=== PATIENT | male | born 1965 | race Caucasian/White ===

== ENCOUNTER → 2025-06-28 | Outpatient (CLI) | payer MEDICAID, SELFPAY ==
--- NOTE | 2025-06-28 11:00 | XR_ITS ---
Examination: Ultrasound-guided paracentesis Abdominal sonogram limited Date and time of exam: June 28, 2025, 1234 hours INDICATIONS: Cirrhosis, increasing abdominal distention and ascites today Informed consent provided. A timeout was completed verifying correct patient, procedure, site, positioning, and special adequate movement if applicable. Technique: Multiple sonographic images of the abdomen have been obtained. Appropriate area for paracentesis was marked. Local anesthesia is obtained with 1% lidocaine. Yueh catheter is successfully introduced. Findings: Abdominal sonographic images demonstrate sufficient ascitic fluid for paracentesis. After placing the Yueh catheter, 8700 cc of fluid were successfully removed. During and after completion of the procedure the patient appear in satisfactory and stable condition with no complications observed. Estimated blood loss 0 cc Impression: Abdominal ascites Successful ultrasound-guided paracentesis as described above
[2025-06-28 13:33] LABS: Basophils # (Auto) 0.0 Thou/mm3 (0.0-0.2); Basophils % (Auto) 1 % (0-2.5); Eosinophils # (Auto) 0.0 Thou/mm3 (0.0-0.5); Eosinophils % (Auto) 1 % (0-10); Hematocrit 27.3 % (41.0-53.0); Hemoglobin 9.4 g/dL (13.5-16.0); Immature Granulocytes Auto 0.02 Thou/mm3 (0.00-0.00); Lymphocytes # (Auto) 0.6 Thou/mm3 (1.0-4.8); Lymphocytes % (Auto) 12 % (10-50); Mean Corpuscular HGB Conc 34.4 g/dl (31.0-37.0); Mean Corpuscular Hemoglobin 30.9 pg (25.0-35.0); Mean Corpuscular Volume 90 fL (80-100); Monocytes # (Auto) 0.6 Thou/mm3 (0.0-0.8); Monocytes % (Auto) 12 % (0-12); Neutrophils # (Auto) 3.8 Thou/mm3 (1.8-7.7); Neutrophils % (Auto) 74 % (37-80); Nucleated Red Blood Cell # 0.00 Thou/mm3 (0.00-0.00); Nucleated Red Blood Cell % 0 /100 WBC (0); Platelet Count 113 Thou/mm3 (140-440); RDW Standard Deviation 46.4 fL (35.1-43.9); Red Blood Count 3.04 Miln/mm3 (4.50-5.90); White Blood Count 5.1 Thou/mm3 (3.8-10.6)
[2025-06-28 13:51] LABS: INR 1.1 (0.9-1.3); Partial Thromboplastin Time 25.4 Seconds (22.0-36.0); Prothrombin Time 11.6 Seconds (9.0-12.2)
== END | disposition home or self-care (01) ==
PROVIDERS: PCP Nurse Practitioner Family; Referring Provider Nurse Practitioner Family; Visit Provider Nurse Practitioner Family
DX: R18.8 Other ascites (principal); K74.60 Unspecified cirrhosis of liver
CPT/HCPCS: 49083; 36415; 85025; 85610; 85730; C1729

== ENCOUNTER 2025-07-12 16:04 | Emergency (ER) | payer MEDICAID, SELFPAY ==
[2025-07-12 16:22] VITALS: BP 143/72; PULSE 75; RESP 16; TEMP 36.7; O2SAT 99; BMI 23.7
--- NOTE | 2025-07-12 16:48 | PD.EDRME ---
Rapid Medical Screening Exam RME Arrival date/time: 07/12/25 16:04 59-year-old male presents emergency department today requesting paracentesis Chief Complaint: Abdominal Pain Time Seen by Provider: 07/12/25 16:16 Vital signs: Vital Signs Temperature 98.0 F 07/12/25 16:22 Pulse Rate 75 07/12/25 16:22 Respiratory Rate 16 07/12/25 16:22 Blood Pressure 143/72 H 07/12/25 16:22 Pulse Oximetry (%) 99 07/12/25 16:22 Oxygen Delivery Method Room Air 07/12/25 16:22 Vital signs reviewed by provider: Yes Exam: On exam well-appearing does not appear look toxic patient does have abdominal distention consistent with cirrhosis and ascites Clinical Impression: Patient to have paracentesis
== END 2025-07-12 17:23 | disposition left against medical advice (07) ==
PROVIDERS: Emergency Provider Nurse Practitioner Primary Care
DX: R14.0 Abdominal distension (gaseous) (principal); Z53.29 Procedure and treatment not carried out because of patient's decision for other reasons
CPT/HCPCS: 99281

== ENCOUNTER 2025-07-13 09:54 | Emergency (ER) | payer MEDICAID, SELFPAY ==
[2025-07-13 10:08] VITALS: BP 160/82; PULSE 70; RESP 20; TEMP 36.6; O2SAT 100; BMI 23.6
--- NOTE | 2025-07-13 10:43 | XR_ITS ---
Examination: Ultrasound-guided paracentesis Abdominal sonogram limited Date and time of exam: July 13, 2025, 1320 hours INDICATION: Cirrhosis, increasing size abdominal distention this week Informed consent provided. A timeout was completed verifying correct patient, procedure, site, positioning, and special adequate movement if applicable. Technique: Multiple sonographic images of the abdomen have been obtained. Appropriate area for paracentesis was marked. Local anesthesia is obtained with 1% lidocaine. Yueh catheter is successfully introduced. Findings: Abdominal sonographic images demonstrate sufficient ascitic fluid for paracentesis. After placing the Yueh catheter, 6500 cc of fluid were successfully removed. During and after completion of the procedure the patient appear in satisfactory and stable condition with no complications observed. Estimated blood loss 0 cc Impression: Abdominal ascites Successful ultrasound-guided paracentesis as described above
[2025-07-13 10:53] LABS: Basophils # (Auto) 0.1 Thou/mm3 (0.0-0.2); Basophils % (Auto) 1 % (0-2.5); Eosinophils # (Auto) 0.1 Thou/mm3 (0.0-0.5); Eosinophils % (Auto) 1 % (0-10); Hematocrit 27.1 % (41.0-53.0); Hemoglobin 9.1 g/dL (13.5-16.0); Immature Granulocytes Auto 0.02 Thou/mm3 (0.00-0.00); Lymphocytes # (Auto) 0.5 Thou/mm3 (1.0-4.8); Lymphocytes % (Auto) 10 % (10-50); Mean Corpuscular HGB Conc 33.6 g/dl (31.0-37.0); Mean Corpuscular Hemoglobin 29.9 pg (25.0-35.0); Mean Corpuscular Volume 89 fL (80-100); Monocytes # (Auto) 0.5 Thou/mm3 (0.0-0.8); Monocytes % (Auto) 9 % (0-12); Neutrophils # (Auto) 4.2 Thou/mm3 (1.8-7.7); Neutrophils % (Auto) 78 % (37-80); Nucleated Red Blood Cell # 0.00 Thou/mm3 (0.00-0.00); Nucleated Red Blood Cell % 0 /100 WBC (0); Platelet Count 118 Thou/mm3 (140-440); RDW Standard Deviation 45.0 fL (35.1-43.9); Red Blood Count 3.04 Miln/mm3 (4.50-5.90); White Blood Count 5.4 Thou/mm3 (3.8-10.6)
[2025-07-13 11:09] LABS: INR 1.1 (0.9-1.3); Prothrombin Time 11.6 Seconds (9.0-12.2)
[2025-07-13 11:13] LABS: Alanine Aminotransferase 15 U/L (10-49); Albumin, Serum 3.8 gm/dL (3.4-4.8); Albumin/Globulin Ratio 1.3 (1.2-2.2); Alkaline Phosphatase 94 U/L (46-116); Anion Gap 8 (7-16); Aspartate Amino Transferase 26 U/L (0-34); BUN/Creatinine Ratio 16 Ratio (12-20); Bilirubin,Total 0.7 mg/dL (0.3-1.2); Blood Urea Nitrogen 38 mg/dL (9-23); Calcium 8.8 mg/dL (8.3-10.6); Calcium (Corrected) 9.0 mg/dL (8.5-10.1); Carbon Dioxide 23.1 mMol/L (20.0-31.0); Chloride 107 mMol/L (98-107); Creatinine (Component) 2.4 mg/dL (0.6-1.3); Estimated Creatinine Clearance 36.5 mL/min (>60); Globulin 2.9 gm/dL (2.3-3.5); Glucose 123 mg/dL (74-106); Osmolality,Calculated 285 (275-295); Potassium 4.4 mMol/L (3.4-5.1); Sodium 138 mMol/L (136-145); Total Protein 6.7 gm/dL (5.7-8.2); eGFR 30 See Note
--- NOTE | 2025-07-13 11:24 | EDRME_ITS ---
Rapid Medical Screening Exam [facility] Arrival date/time: 07/13/25 09:54 This is a 59-year-old male that comes into the emergency room with complaints of wanting to have a paracentesis. Patient states he is been here before and they drained approximately 9 L of fluid on June 28, 2025. Patient states that he feels like he is full again. Patient was told by his primary doctor to come here in the emergency room and have it drained. Patient has no other complaints. Chief Complaint: Abdominal Pain Time Seen by Provider: 07/13/25 10:05 Vital signs: Vital Signs Temperature 97.9 F 07/13/25 10:08 Pulse Rate 70 07/13/25 10:08 Respiratory Rate 20 07/13/25 10:08 Blood Pressure 160/82 H 07/13/25 10:08 Pulse Oximetry (%) 100 07/13/25 10:08 Oxygen Delivery Method Room Air 07/13/25 10:08 Exam: Abdominal distention, alert and oriented, breathing even and unlabored Clinical Impression: Ascites
--- NOTE | 2025-07-13 16:16 | PD.EDABDPN ---
ED Abdominal Pain RME/HPI General Chief Complaint: Abdominal Pain Stated complaint: NEEDS PARACENTESIS, DENIES SOB Time seen by provider: 07/13/25 10:05 Arrival date/time: 07/13/25 09:54 59-year-old male patient came in for evaluation regarding request for paracentesis. According to him he has been having worsening abdominal distention severity moderate. Patient is denying any abdominal pain denies any fever denies any shortness of breath. Patient had paracentesis done 2 weeks ago. RME / HPI RME / HPI narrative: 07/13/25 09:54 This is a 59-year-old male that comes into the emergency room with complaints of wanting to have a paracentesis. Patient states he is been here before and they drained approximately 9 L of fluid on June 28, 2025. Patient states that he feels like he is full again. Patient was told by his primary doctor to come here in the emergency room and have it drained. Patient has no other complaints. Exam: Abdominal distention, alert and oriented, breathing even and unlabored Impression: Ascites Related Data Allergies Allergy/AdvReac Type Severity Reaction Status Date / Time Penicillins Allergy Verified 07/13/25 09:57 Review of Systems Review of Systems Narrative Review of Systems: Review of system reviewed and within normal limits except mentioned in HPI ED Exam Narrative Physical exam: VITAL SIGNS: Reviewed. GENERAL APPEARANCE: Alert and interactive, follows commands, no acute distress, HEAD AND FACE: Non-traumatic. ENT: PERRL, pink conjunctivitis, eyelid no trauma, Mucous membrane moist. NECK: Supple, nontender, no nuchal rigidity. CHEST: No tenderness, no crepitus, no paradoxical movement, no retractions. LUNGS: Clear, well ventilated, symmetric, no rales, no wheezing, no ronchi, no stridor, good breath sounds bilaterally. HEART: Regular rate, regular rhythm, no murmur, no gallops. ABDOMEN: Soft, positive bowel sounds, abdominal distention, positive fluid wave test, no guarding, nontender, no rebound, no masses, RECTAL: Deferred. GENITAL: Deferred. NEUROLOGICAL: Gross motor function intact sensory function intact, Appropriate for age. MUSCULOSKELETAL: low back nontender, full range of motion. EXTREMITIES: Nontender, full range of motion. SKIN: Color pink, dry, no rash, no lacerations, no abrasions, no contusions. LYMPHATICS: Deferred. Course Quality Measures none Orders Category Date Time Status US paracentesis abd w/image Stat Exams 07/13/25 10:43 Completed CBC Stat Lab 07/13/25 10:45 Completed Comprehensive Metabolic Panel Stat Lab 07/13/25 10:45 Completed PT [Prothrombin Time with INR] Stat Lab 07/13/25 10:45 Completed Vital Signs Vital signs: Vital Signs Temperature 97.9 F 07/13/25 10:08 Pulse Rate 70 07/13/25 10:08 Respiratory Rate 20 07/13/25 10:08 Blood Pressure 160/82 H 07/13/25 10:08 Pulse Oximetry (%) 100 07/13/25 10:08 Oxygen Delivery Method Room Air 07/13/25 10:08 Abdominal Pain MDM MDM Narrative MDM Narrative:: 59-year-old male patient came in for evaluation regarding request for paracentesis. According to him he has been having worsening abdominal distention severity moderate. Patient is denying any abdominal pain denies any fever denies any shortness of breath. Patient had paracentesis done 2 weeks ago. Patient's about her workup all came back unremarkable except for hemoglobin of 9.1 hematocrit of 27.1 Patient underwent ultrasound-guided paracentesis able to remove 6.5 L of fluid. No complication noted. Patient eloped from the emergency room. Patient data External records reviewed:: None Clinical information provided by:: patient Social determinants that could affect healthcare access:: none Patient has the following chronic illnesses:: Abdominal ascites, chronic How is presenting disease/condition affected by chronic disease/condition?: exacerbated by Evaluation data The following diagnostics were reviewed and interpreted by me:: lab results and radiology exam(s) Lab and/or radiology exams considered but not ordered:: None Interpretation Summary: None Medications / Prescriptions Medications or Prescriptions considered but not ordered:: None Medication administrations:: None Consultations Consultation(s) initiated? (list below): No Diagnosis Differential diagnosis abdominal pain: pancreatitis (Abdominal distention abdominal ascites) Most likely diagnosis given after review of the tests above:: Abdominal ascites Admission Indicated Admission indicated?: not indicated Admission Request Was there a request for admission?: No Admission Attestation Admission request attestation: Elopement Disposition Plan Disposition Plan: other (specify) Discharge Plan Plan Patient Disposition: Elopement Problem List Clinical Impression: Abdominal ascites Patient/Caregiver Discharge Instructions Education Materials: Paracentesis Print Language: Occitan
--- NOTE | 2025-07-13 16:18 | PC.NURSE ---
CALLED PATIENT FOR DISCHARGE. NO ANSWER FROM ROYA @[id number]
== END 2025-07-13 17:24 | disposition left against medical advice (07) ==
PROVIDERS: Emergency Provider Nurse Practitioner Family
DX: K74.60 Unspecified cirrhosis of liver (principal); R18.8 Other ascites
CPT/HCPCS: 49083; 36415; 80053; 85025; 85610; 99283; C1729

== ENCOUNTER → 2025-07-24 | Outpatient (CLI) | payer MEDICAID, SELFPAY ==
--- NOTE | 2025-07-24 13:00 | XR_ITS ---
Examination: Ultrasound-guided paracentesis Abdominal sonogram limited Date and time of exam: 07/24/2025, 1:43 p.m. Informed consent provided. A timeout was completed verifying correct patient, procedure, site, positioning, and special adequate movement if applicable. Technique: Multiple sonographic images of the abdomen have been obtained. Appropriate area for paracentesis was marked. Local anesthesia is obtained with 1% lidocaine. Yueh catheter is successfully introduced. Findings: Abdominal sonographic images demonstrate sufficient ascitic fluid for paracentesis. After placing the Yueh catheter, 9600 cc of fluid were successfully removed. During and after completion of the procedure the patient appear in satisfactory and stable condition with no complications observed. Estimated blood loss 0 cc Impression: Abdominal ascites Successful ultrasound-guided paracentesis as described above
== END | disposition home or self-care (01) ==
PROVIDERS: PCP Physician Assistant Medical; Referring Provider Physician Assistant Medical; Visit Provider Physician Assistant Medical
DX: R18.8 Other ascites (principal); I85.00 Esophageal varices without bleeding; K74.60 Unspecified cirrhosis of liver
CPT/HCPCS: 49083; C1729